=== PATIENT | female | born 1960 | race Caucasian/White ===

== ENCOUNTER 2025-09-12 08:14 | Emergency (ER) | payer BC, SELFPAY ==
[2025-09-12 08:31] VITALS: BP 172/77; PULSE 68; RESP 16; TEMP 36.1; O2SAT 99
--- NOTE | 2025-09-12 08:33 | ED.URI ---
HPI - URI/Sore Throat General Chief Complaint: Upper Respiratory Infection Stated Complaint: SORE THROAT Time Seen by Provider: 09/12/25 08:28 Source: patient and RN notes reviewed Mode of arrival: ambulatory Limitations: no limitations History of Present Illness HPI Narrative: Patient presents today complaining of a 1.5 week history of body aches and chills that have been improving since onset, but sore and swollen throat symptoms started a few days ago as well as some nasal congestion. Pain increases with swallowing and currently rates her pain 8/10. No OTC treatment prior to arrival. Related Data Home Medications ?Medication ?Instructions ?Recorded ?Confirmed ?Last Taken ?Type No Home Medications 09/12/25 09/12/25 Unknown History Allergies Allergy/AdvReac Type Severity Reaction Status Date / Time No Known Allergies Allergy Mild Verified 09/12/25 08:26 [facility] Comments At time of signature, I have reviewed and agree with nursing past medical, surgical, social and family history unless otherwise noted. Please see nursing chart for further information. There is no relevant family history pertinent to the presenting complaint Exam Narrative: GENERAL: Mildly ill-appearing, well-nourished, and in no acute distress. HEAD: Normocephalic, atraumatic. EYES: EOMI. No redness or drainage. Conjunctivae normal. ENT: Mucous membranes pink and moist. Nares congested. No rhinorrhea. TMs normal bilaterally. Throat normal. Uvula midline. Moderate white postnasal drainage NECK: Normal AROM. Supple. No lymphadenopathy. CHEST: No respiratory distress. Clear to auscultation. HEART: Regular rate and rhythm. No murmur appreciated. EXTREMITIES: Normal range of motion. No edema. SKIN: Warm, dry, no rash. Capillary refill normal. Normal skin turgor. NEURO: No focal deficits. Alert and oriented x3. Gait steady. PSYCH: Normal affect. No signs of depression or anxiety. Course Course Level of Care: Express Care Visit Vital Signs Vital signs: Vital Signs Temperature 97 F L 09/12/25 08:31 Pulse Rate 68 09/12/25 08:31 Respiratory Rate 16 09/12/25 08:31 Blood Pressure 172/77 H 09/12/25 08:31 Pulse Oximetry 99 09/12/25 08:31 Temperature 97 F L 09/12/25 08:31 Pulse Rate 68 09/12/25 08:31 Respiratory Rate 16 09/12/25 08:31 Blood Pressure 172/77 H 09/12/25 08:31 Pulse Oximetry 99 09/12/25 08:31 Reviewed MDM - URI/Sore Throat MDM Narrative Medical decision making narrative: Patient presents today complaining of a 1.5 week history of body aches and chills that have been improving since onset, but sore and swollen throat symptoms started a few days ago as well as some nasal congestion. Pain increases with swallowing and currently rates her pain 8/10. No OTC treatment prior to arrival. Upon exam, patient is mildly ill appearing with nasal congestion and white postnasal drainage. Throat has no erythema, edema, or exudate. Rapid strep negative. Strep culture pending. Symptoms likely viral in etiology. Discussed [id number] medication use and duration of illness. No prescription medications indicated at this time. Anticipatory guidance given. Vital signs stable, with elevated blood pressure. Patient agrees with plan. Differential Diagnosis Differential diagnosis: Likely upper respiratory infection, otitis media, sinusitis, viral infection, pharyngitis and other (strep throat) Lab Data Attestation: I reviewed the patient's lab results. Lab results narrative: Rapid strep negative Critical Care Time Critical Care Time Critical Care Time: No Discharge Plan Discharge Clinical Impression: Upper respiratory infection Qualifiers: URI type: unspecified URI Qualified Code(s): J06.9 - Acute upper respiratory infection, unspecified Patient Disposition: Home Condition: Stable Instructions: Upper Respiratory Infection (DC) Additional Instructions: Your rapid strep swab was negative today at [facility]. You will be notified in a few days if the culture comes back positive for strep, and appropriate antibiotics will be called in for you at that time. Your symptoms are likely due to a viral illness, which is not treated with antibiotics. Viral symptoms can be present for up to 7-10 days. Take Tylenol or ibuprofen for fever or pain. Consider an intranasal steroid such as Flonase to help with your postnasal drainage and nasal congestion. Rest and stay hydrated. Follow up with your PCP in 3-5 days if symptoms are not improving. Go to the ER immediately if you have any difficulty breathing or swallowing. Patient Language: Swiss Prescriptions: No Action No Home Medications Follow-up/Referrals: Mena,Gwen Moran MD [Primary Care Provider, Unknown] Time of Disposition: 08:45
[2025-09-12 08:38] LABS: EDSTREPNEGPOS1 Negative (Negative)
== END 2025-09-12 08:54 | disposition home or self-care (01) ==
PROVIDERS: Emergency Provider Nurse Practitioner; PCP Internal Medicine
DX: J06.9 Acute upper respiratory infection, unspecified (principal)
CPT/HCPCS: 87081; 87880; 99203; G0463